=== PATIENT | male | born 1990 | race African-American/Black ===

== ENCOUNTER 2018-09-08 20:11 | Emergency (ER) | payer OTHER ==
[~2018-09-08] VITALS: Ht 185.4 cm; Wt 90.7 kg
[2018-09-08] MEDS ORDERED: NAPROSYN500 MG PO (23:24)
[2018-09-08] MEDS ORDERED: NORFLEX100 MG PO (23:24)
== END 2018-09-08 23:45 | disposition home or self-care (01) ==
LOC: ER 20:11
DX: S16.1XXA Strain of muscle, fascia and tendon at neck level, initial encounter (principal); S39.012A Strain of muscle, fascia and tendon of lower back, initial encounter; S63.592A Other specified sprain of left wrist, initial encounter; S93.691A Other sprain of right foot, initial encounter; S80.812A Abrasion, left lower leg, initial encounter; M25.512 Pain in left shoulder; V48.6XXA Car passenger injured in noncollision transport accident in traffic accident, initial encounter; Y93.89 Activity, other specified; Y92.89 Other specified places as the place of occurrence of the external cause; Y99.8 Other external cause status

== ENCOUNTER 2021-02-24 16:51 | Emergency (ER) | payer OTHER ==
[~2021-02-24] VITALS: Ht 190.5 cm; Wt 72.6 kg
[~2021-02-24 16:51] MED LIST: NAPROSYN500 MG PO; NORFLEX100 MG PO
[2021-02-24 18:37] VITALS: BP 126/82
== END 2021-02-24 18:38 | disposition home or self-care (01) ==
LOC: ER 16:51
DX: S82.831A Other fracture of upper and lower end of right fibula, initial encounter for closed fracture (principal); M54.5 Low back pain; V49.88XA Car occupant (driver) (passenger) injured in other specified transport accidents, initial encounter; Y93.89 Activity, other specified; Y92.413 State road as the place of occurrence of the external cause; Y99.9 Unspecified external cause status